=== PATIENT | female | born 1995 | race Caucasian/White ===

== ENCOUNTER 2019-11-08 21:01 | Emergency (ER) | payer SELFPAY ==
[~2019-11-08] VITALS: Ht 162.6 cm; Wt 81.8 kg
[2019-11-08 21:15] VITALS: TEMP 101.2
[2019-11-08 22:37] LABS: HEMATOCRIT 46.4 % (37.0-47.0); HEMOGLOBIN 15.1 g/dl (12.5-16.0); MEAN CELL VOLUME 89 fl (80.0-100.0); MEAN CORPUSCULAR HEMOGLOBIN 29 pg (27.0-31.0); MEAN CORPUSCULAR HGB CONC 33 g/dl (33.0-37.0); MEAN PLATELET VOLUME 11.6 fl (7.4-10.4); PLATELET COUNT 177 K/mm3 (130-400); RED BLOOD COUNT 5.24 M/mm3 (4.10-5.30); REDCELL DISTRIBUTION WIDTH-CV 12.6 % (11.5-14.5)
[2019-11-08 22:44] LABS: COLLECTION METHOD CLEAN CATCH
[2019-11-08 22:51] LABS: PH 8 (5-8); URINE APPEARANCE Hazy; URINE BACTERIA Rare /hpf; URINE BILIRUBIN Negative (NEGATIVE); URINE BLOOD 3+ (NEGATIVE); URINE COLOR Yellow; URINE GLUCOSE Negative (NEGATIVE); URINE KETONE Negative (NEGATIVE); URINE LEUKOCYTE ESTERASE Negative (NEGATIVE); URINE NITRATE Negative (NEGATIVE); URINE PROTEIN(semi-quant) 2+ (NEGATIVE); URINE RBC >50 /hpf; URINE UROBILINOGEN Negative (NEGATIVE)
[2019-11-08 22:51] LABS: ALBUMIN 4.1 gm/dL (3.5-5.0); BILIRUBIN,TOTAL 0.3 mg/dL (0.0-1.0); C-REACTIVE PROTEIN 2.6 mg/dL (0.0-0.9); CALCIUM 8.7 mg/dL (8.4-10.2); CREATININE, serum 0.71 (0.52-1.25); POTASSIUM 4.1 mmol/L (3.4-5.0); TOTAL PROTEIN 7.5 gm/dL (6.4-8.2)
[2019-11-08 23:20] LABS: BAND 24 % (0-10); LYMPHOCYTE 32 % (20.0-51.0); NEUTROPHILS 38 % (42.0-75.2); PLATELET ESTIMATE NORMAL (NORMAL)
[2019-11-08 23:52] VITALS: BP 113/77; PULSE 73
== END 2019-11-09 01:01 | disposition home or self-care (01) ==
LOC: COL.ER 21:01
PROVIDERS: Emergency Medicine
DX: R50.9 Fever, unspecified (principal); M54.5 Low back pain; Z11.59 Encounter for screening for other viral diseases
CPT/HCPCS: J1885; J2550; J7030